=== PATIENT | female | born 1995 | race African-American/Black ===

== ENCOUNTER 2017-10-09 14:23 | Emergency (ER) | payer SELFPAY ==
[~2017-10-09] VITALS: Ht 162.6 cm; Wt 59.0 kg
[2017-10-09 14:34] VITALS: BP 132/83
[2017-10-09] MEDS ORDERED: CYCL10TA2 PO (14:44)
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
[2017-10-09] MEDS ORDERED: IBUPROFEN 600 MG TABLET. PO ONE (15:00)
== END 2017-10-09 15:13 | disposition home or self-care (01) ==
LOC: ER 14:23
DX: S16.1XXA Strain of muscle, fascia and tendon at neck level, initial encounter (principal); M25.512 Pain in left shoulder; V43.52XA Car driver injured in collision with other type car in traffic accident, initial encounter; Y93.I9 Activity, other involving external motion; Y92.481 Parking lot as the place of occurrence of the external cause; Y99.8 Other external cause status
CPT/HCPCS: 81025; 99283